=== PATIENT | male | born 1985 ===

== ENCOUNTER 2021-09-24 12:32 | Emergency (ER) | payer SELFPAY ==
[2021-09-24 14:12] LABS: Basophils % (Auto) 0.3 % (0.0-1.8); Eosinophils # (Auto) 0.1 K/mm3 (0.0-0.4); Eosinophils % (Auto) 1.3 % (0.0-4.3); Hematocrit 43.1 % (35.5-45.6); Hemoglobin 14.2 gm/dl (11.8-15.2); Lymphocytes # (Auto) 2.6 K/mm3 (1.2-5.4); Lymphocytes % (Auto) 49.5 % (13.4-35.0); Mean Corpuscular HGB Conc 33 % (32-34); Mean Corpuscular Volume 82 fl (84-94); Monocytes # (Auto) 0.4 K/mm3 (0.0-0.8); Monocytes % (Auto) 7.1 % (0.0-7.3); Platelet Count 188 K/mm3 (140-440); Red Blood Count 5.23 M/mm3 (3.65-5.03); Red Cell Distribution Width 15.6 % (13.2-15.2)
[2021-09-24 14:34] LABS: BUN/Creatinine Ratio 8; Blood Urea Nitrogen 9 mg/dL (9-20); Calcium 9.8 mg/dL (8.4-10.2); Hemolysis Index 11
--- NOTE | 2021-09-24 20:24 | Emergency Department Report ---
ED Psych HPI - General Chief Complaint: Psych Stated Complaint: PSYCH EVAL Time Seen by Provider: 09/24/21 13:42 Source: patient Mode of arrival: Ambulatory - History of Present Illness Initial Comments: PD walked into triage with pt stating the pt called 911 himself for hearing voices and wanting to kill himself. Upon arrival to the residence the pt had a razor in his hand that he put down. PD reports the pt lives in a longterm and only speaks libyan. pt is calm and cooperative. MD Complaint: suicidal ideation, feels depressed -: days(s) Associated Psychiatric Symptoms: depression, suicidal ideation Quality: constant Improves With: none - Related Data Allergies Allergy/AdvReac Type Severity Reaction Status Date / Time No Known Allergies Allergy Unverified 09/25/21 10:45 ED Review of Systems ROS: Stated complaint: PSYCH EVAL Other details as noted in HPI Comment: Unobtainable due to pts medical conditions ED Past Medical Hx - Past Medical History Hx Psychiatric Treatment: (schizophrenia) - Surgical History Additional Surgical History: right lower leg sx - Social History Smoking Status: Never Smoker ED Physical Exam - General Limitations: No Limitations General appearance: alert, anxious - Head Head exam: Present: atraumatic, normocephalic - Eye Eye exam: Present: normal appearance - ENT ENT exam: Present: mucous membranes moist - Neck Neck exam: Present: normal inspection - Respiratory Respiratory exam: Present: normal lung sounds bilaterally. Absent: respiratory distress - Cardiovascular Cardiovascular Exam: Present: regular rate, normal rhythm. Absent: systolic murmur, diastolic murmur, rubs, gallop - GI/Abdominal GI/Abdominal exam: Present: soft, normal bowel sounds - Rectal Rectal exam: Present: deferred - Extremities Exam Extremities exam: Present: normal inspection - Back Exam Back exam: Present: normal inspection - Neurological Exam Neurological exam: Present: alert, oriented X3 - Psychiatric Psychiatric exam: Present: depressed - Skin Skin exam: Present: warm, dry, intact, normal color. Absent: rash ED Course Vital Signs 09/24/21 09/25/21 09/25/21 12:34 08:36 19:34 Temperature 98.9 F 99.0 F 99.8 F H Pulse Rate 70 61 67 Respiratory 14 22 18 Rate Blood Pressure 131/71 Blood Pressure 104/61 149/85 [Left] O2 Sat by Pulse 100 100 98 Oximetry ED Medical Decision Making - Lab Data Result diagrams: 09/24/21 14:01 09/24/21 14:01 Critical care attestation.: If time is entered above; I have spent that time in minutes in the direct care of this critically ill patient, excluding procedure time. ED Disposition Clinical Impression: Depression, Suicidal ideation Disposition: [address] [place] [address] Is pt being admited?: No Does the pt Need Aspirin: No Condition: Stable
--- NOTE | 2021-09-25 09:53 | Consultation ---
History of Present Illness - Reason for Consult Consult date: 09/25/21 Reason for consult: suicidal ideation - History of Present Psychiatric Illness HPI: PD walked into triage with pt stating the pt called 911 himself for hearing voices and wanting to kill himself. Upon arrival to the residence the pt had a razor in his hand that he put down. PD reports the pt lives in a snf and only speaks [place]ong[place]. pt is calm and cooperative. The patient is a 36 year old male with history of schizophrenia. Assessed with an low altitude air defense gunner. The patient was seen today. He is calm, alert and oriented x3. The patient reports ongoing auditory and visual hallucinations x2 years. He presents with suicidal ideation with a plan to slit his wrist; reports recent stressor as the of his father that occurred 2 months ago. The patient reports being compliant with psychotropic medication, states he sees a psychiatrist at [facility]. The patient states he gets monthly JACOBS Abilify Maintena, last dose was on 09/11. He is unclear of what the voices are telling him. PAST PSYCHIATRIC HISTORY Diagnoses: schizophrenia Suicide attempts or Self-harm behavior: Yes Prior psychiatric hospitalizations: Yes Substance Abuse history: Cocaine Previous psychiatric medications tried:Abilify Maintena Outpatient treatment: [facility] PAST MEDICAL HISTORY: none reported Family Psychiatric History: None reported or documented SOCIAL HISTORY Marital Status: Single Living Arrangements: Lives in a snf Employment Status: unemployed Access to guns/weapons: Denies Education: 10th grade History of Abuse: none reported Legal History: none reported REVIEW OF SYSTEMS Constitutional: Negative for weight loss ENT: Negative for stridor Respiratory: Negative for cough or hemoptysis All other systems reviewed and are negative MENTAL STATUS EXAMINATION General Appearance and Behavior: Age appropriate, good hygiene, wearing appropriate clothes, fair eye contact, cooperative polite with questioning. Cooperation: Participating/engaged, guarded Psychomotor Behavior: unremarkable and within normal limits Mood: Depressed Affect and affective range: congruent with mood Thought Process: Goal directed Thought Content: suicidal/hallucinations Speech: Normal volume, Regular rate and rhythm, Suicidal Ideation:Yes Homicidal Ideation: Denies Hallucinations: Auditory/visual Delusions: None Impulse Control: Questionable Insight and Judgment: Limited insight and poor judgment, Memory: Normal, Attention: Normal, Orientation: Alert, oriented, Assessment and Plan (1) Schizophrenia Treatment 1013 Continue home meds. Start Abilify 15mg po daily Start Trazodone 50mg po QHS Sitter: Per primary Medical: Per primary Disposition: recommend acute inpatient psychiatric treatment. Will follow Thanks Case staffed with Dr. Tobin Medications and Allergies Mental Status Exam - Vital signs Last Vital Signs Temp 99.0 F 09/25/21 08:36 Pulse 61 09/25/21 08:36 Resp 22 09/25/21 08:36 BP 104/61 09/25/21 08:36 Pulse Ox 100 09/25/21 08:36 Results Result Diagrams: 09/24/21 14:01 09/24/21 14:01 Abnormal lab results 09/24/21 09/24/21 09/24/21 Range/Units 14:01 14:01 14:01 RBC 5.23 H (3.65-5.03) M/mm3 MCV 82 L (84-94) fl MCH 27 L (28-32) pg RDW 15.6 H (13.2-15.2) % Lymph % (Auto) 49.5 H (13.4-35.0) % Salicylates < 0.3 L (2.8-20.0) mg/dL Acetaminophen 5.0 L (10.0-30.0) ug/mL All other labs normal.
--- NOTE | 2021-09-25 12:00 | Emergency Department Report ---
Blank Doc - Documentation Documentation: 36-year-old male with schizophrenia suicidal ideation currently on 1013. [facility] UDS collection. COVID-negative. No events documented overnight. Vital signs unremarkable. Pending placement
[2021-09-25 12:39] LABS: Bilirubin,Urine NEG (Negative); Blood,Urine NEG (Negative); Color,Urine Straw (Yellow); Protein,Urine <15 mg/dL mg/dL (Negative); Urobilinogen,Urine < 2.0 mg/dL (<2.0)
[2021-09-25 12:47] LABS: WBC,Urine < 1.0 /HPF (0.0-6.0)
[2021-09-25 12:49] LABS: Amphetamine Screen,Urine Negative; Benzodiazepines Screen,Urine Negative; Cannabinoid Screen,Urine Negative; Cocaine Screen,Urine Negative; Methadone Screen,Urine Negative; Opiate Screen,Urine Negative
[2021-09-25] MEDS: ARIPiprazole 15 MG TAB PO SCH (12:50)
[2021-09-25] MEDS ORDERED: traZODone 50 MG TAB PO SCH (22:00)
[2021-09-26 08:31] VITALS: BP 116/68
[2021-09-26] MEDS: ARIPiprazole 15 MG TAB PO SCH (09:45)
--- NOTE | 2021-09-26 10:04 | Progress Note ---
Subjective - Reason for Consult Consult date: 09/26/21 Reason for consult: suicidal ideation - Chief Complaint Chief complaint: The patient was seen this morning. Interview conducted with an infantry unit leader. The patient states he is feeling better; he reports no significant side effects. The patient states sleep and appetite as good. He denies any current suicidal/homicidal ideation and denies hallucinations. REVIEW OF SYSTEMS Constitutional: Negative for weight loss ENT: Negative for stridor Respiratory: Negative for cough or hemoptysis All other systems reviewed and are negative MENTAL STATUS EXAMINATION General Appearance and Behavior: Age appropriate, good hygiene, wearing appropriate clothes, fair eye contact, cooperative polite with questioning. Cooperation: Participating/engaged Psychomotor Behavior: unremarkable and within normal limits Mood: calm Affect and affective range: congruent with mood Thought Process: Goal directed Thought Content: Reality oriented Speech: Normal volume, Regular rate and rhythm, Suicidal Ideation:Denies Homicidal Ideation: Denies Hallucinations: Denies Delusions: None Impulse Control: Normal Insight and Judgment: Limited insight and judgment, Memory: Normal, Attention: Normal, Orientation: Alert, oriented x 3 Assessment and Plan (1) Schizophrenia Treatment DC 1013 Continue home meds. Continue Abilify 15mg po daily Continue Trazodone 50mg po QHS Sitter: Per primary Medical: Per primary Disposition: Do not recommend acute inpatient psychiatric treatment. Anesthesia Director will provide patientwith psychiatric out patient resources and safety plan. Will sign off. Thanks Case staffed with Dr. Tobin Medications and Allergies Mental Status Exam Mental Status Exam - Vital signs Last Vital Signs Temp 98.7 F 09/26/21 08:30 Pulse 61 09/26/21 08:30 Resp 20 09/26/21 08:30 BP 116/68 09/26/21 08:30 Pulse Ox 99 09/26/21 08:36
--- NOTE | 2021-09-26 12:41 | Event Note ---
Date: 09/26/21 The patient was evaluated in the emergency department for symptoms described in the history of present illness. He/she was evaluated in the context of the global COVID-19 pandemic, which necessitated consideration that the patient might be at risk for infection with the virus that causes COVID-19. Institutional protocols and algorithms that pertain to the evaluation of patients at risk for COVID-19 are in a state of rapid change based on information released by regulatory bodies including the CDC and federal and state organizations. These policies and algorithms were followed during the patient's care in the emergency department. Please note that these policies, procedures and recommendations changed on a rapid basis. Laboratory studies, vital signs, nursing documentation, ER documentation, and psychiatric documentation are reviewed and appreciated. Nursing team reports no acute events this morning or concerns. The patient is awake and ambulating and does not appear to be in any acute distress. The patient was deemed medically suitable for psychiatric disposition and placement during his initial ER evaluation. The patient continues to remain medically suitable for psychiatric placement and disposition. He is currently pending psychiatric placement. The psychiatric team have recommended discontinuation of 1013. We will therefore discontinue this patient's 1013 he will be discharged with outpatient follow-up. Vital Signs 09/24/21 09/25/21 09/25/21 12:34 08:36 19:34 Temperature 98.9 F 99.0 F 99.8 F H Pulse Rate 70 61 67 Respiratory 14 22 18 Rate Blood Pressure 131/71 Blood Pressure 104/61 149/85 [Left] O2 Sat by Pulse 100 100 98 Oximetry 09/26/21 09/26/21 08:30 08:36 Temperature 98.7 F Pulse Rate 61 Respiratory 20 Rate Blood Pressure Blood Pressure 116/68 [Left] O2 Sat by Pulse 99 99 Oximetry Labs 09/24/21 09/24/21 09/24/21 12:12 12:12 14:01 WBC 5.3 RBC 5.23 H Hgb 14.2 Hct 43.1 MCV 82 L MCH 27 L MCHC 33 RDW 15.6 H Plt Count 188 Lymph % (Auto) 49.5 H [place] % (Auto) 7.1 Eos % (Auto) 1.3 Baso % (Auto) 0.3 Lymph # (Auto) 2.6 [place] # (Auto) 0.4 Eos # (Auto) 0.1 Baso # (Auto) 0.0 Seg Neutrophils % 41.8 Seg Neutrophils # 2.2 Sodium Potassium Chloride Carbon Dioxide Anion Gap BUN Creatinine Estimated GFR BUN/Creatinine Ratio Glucose Calcium Urine Color Straw Urine Turbidity Clear Urine pH 8.0 H Ur Specific [place] 1.006 Urine Protein <15 mg/dl Urine Glucose (UA) Neg Urine Ketones Neg Urine Blood Neg Urine Nitrite Neg Urine Bilirubin Neg Urine Urobilinogen < 2.0 Ur Leukocyte Esterase Neg Urine WBC (Auto) < 1.0 Urine RBC (Auto) 2.0 Salicylates Urine Opiates Screen Negative Urine Methadone Screen Negative Acetaminophen Ur Barbiturates Screen Negative Ur Phencyclidine Scrn Negative Ur Amphetamines Screen Negative U Benzodiazepines Scrn Negative Urine Cocaine Screen Negative U Marijuana (THC) Screen Negative Drugs of Abuse Note Disclamer SARS-CoV-2 (PCR) 09/24/21 09/24/21 09/24/21 14:01 14:01 14:01 WBC RBC Hgb Hct MCV MCH MCHC RDW Plt Count Lymph % (Auto) [place] % (Auto) Eos % (Auto) Baso % (Auto) Lymph # (Auto) [place] # (Auto) Eos # (Auto) Baso # (Auto) Seg Neutrophils % Seg Neutrophils # Sodium 141 Potassium 4.4 Chloride 106.0 Carbon Dioxide 24 Anion Gap 15 BUN 9 Creatinine 1.1 Estimated GFR > 60 BUN/Creatinine Ratio 8 Glucose 86 Calcium 9.8 Urine Color Urine Turbidity Urine pH Ur Specific [place] Urine Protein Urine Glucose (UA) Urine Ketones Urine Blood Urine Nitrite Urine Bilirubin Urine Urobilinogen Ur Leukocyte Esterase Urine WBC (Auto) Urine RBC (Auto) Salicylates < 0.3 L Urine Opiates Screen Urine Methadone Screen Acetaminophen 5.0 L Ur Barbiturates Screen Ur Phencyclidine Scrn Ur Amphetamines Screen U Benzodiazepines Scrn Urine Cocaine Screen U Marijuana (THC) Screen Drugs of Abuse Note SARS-CoV-2 (PCR) 09/25/21 10:15 WBC RBC Hgb Hct MCV MCH MCHC RDW Plt Count Lymph % (Auto) [place] % (Auto) Eos % (Auto) Baso % (Auto) Lymph # (Auto) [place] # (Auto) Eos # (Auto) Baso # (Auto) Seg Neutrophils % Seg Neutrophils # Sodium Potassium Chloride Carbon Dioxide Anion Gap BUN Creatinine Estimated GFR BUN/Creatinine Ratio Glucose Calcium Urine Color Urine Turbidity Urine pH Ur Specific [place] Urine Protein Urine Glucose (UA) Urine Ketones Urine Blood Urine Nitrite Urine Bilirubin Urine Urobilinogen Ur Leukocyte Esterase Urine WBC (Auto) Urine RBC (Auto) Salicylates Urine Opiates Screen Urine Methadone Screen Acetaminophen Ur Barbiturates Screen Ur Phencyclidine Scrn Ur Amphetamines Screen U Benzodiazepines Scrn Urine Cocaine Screen U Marijuana (THC) Screen Drugs of Abuse Note SARS-CoV-2 (PCR) Negative
== END 2021-09-26 13:30 | disposition home or self-care (01) ==
LOC: EEVIPCON 12:32 → ED 12:32
DX: F32.9 Major depressive disorder, single episode, unspecified (principal); R45.851 Suicidal ideations; Z20.822 Contact with and (suspected) exposure to COVID-19; F20.9 Schizophrenia, unspecified; Z98.890 Other specified postprocedural states
CPT/HCPCS: 36415; 80048; 80307; 81001; 85025; 99284; U0003; 80320; G0480